=== PATIENT | male | born 1955 | race Caucasian/White ===

== ENCOUNTER 2024-05-30 13:03 | Outpatient (CLI) | payer MEDICARE, SELFPAY ==
--- OUTSIDE RECORDS SUMMARY | 2024-05-30 14:40 | XMS_ITS | Patient Health Record ---
Author Organization [facility] Address [address] [place] [address] Care Team Providers Care President [employer] Name Role Phone Conor Schmitz Primary Care Provider Hari GOFF, Willy Unavailable Unavailable Reason For Referral No Information Medications Medication SIG (Take, Route, Frequency, Duration) Notes Start Date End Date Status atorvastatin 40 mg tablet 40 by mouth *please review for potential update for e-prescription and drug interaction check* 1 tablet by mouth daily 11/26/2015 Active omeprazole 40 mg capsule,delayed release 40 by mouth *please review for potential update for e-prescription and drug interaction check* 1 capsule by mouth daily 01/08/2016 Active fexofenadine 180 mg tablet 180 by mouth *please review for potential update for e-prescription and drug interaction check* 1 tablet by mouth in the morning 01/08/2016 Active Lantus Solostar 100 unit/mL (3 mL) subcutaneous insulin pen 100 unit/mL inject below the skin *please review for potential update for e-prescription and drug interaction check* units inject below the skin in the morning 09/30/2015 Active Novolog Flexpen 100 unit/mL subcutaneous 100 inject below the skin *please review for potential update for e-prescription and drug interaction check* 1 unit inject below the skin as directed 09/28/2015 Active Problems Problem Type SNOMED Code ICD Code Onset Dates Problem Status W/U Status Risk Notes Problem Malignant tumor of cardia (disorder) (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
== END 2024-05-30 13:04 | disposition home or self-care (01) ==
LOC: CHSAUDIO 13:05
PROVIDERS: PCP Internal Medicine; Visit Provider Internal Medicine
DX: H90.3 Sensorineural hearing loss, bilateral (principal)
CPT/HCPCS: 92557; 92567